=== PATIENT | male | born 1985 | race Caucasian/White ===

== ENCOUNTER 2020-06-24 09:39 | Emergency (ER) | payer OTHER, SELFPAY ==
[2020-06-24 09:55] VITALS: BP 149/91; PULSE 85; RESP 14; TEMP 36.8; O2SAT 100
== END 2020-06-24 10:05 | disposition left against medical advice (07) ==
DX: R10.9 Unspecified abdominal pain (principal)
CPT/HCPCS: 99199

== ENCOUNTER 2023-02-14 15:49 | Emergency (ER) | payer OTHER, SELFPAY ==
[2023-02-14 16:23] VITALS: BP 164/78; PULSE 85; RESP 18; TEMP 36.9; O2SAT 100
--- NOTE | 2023-02-14 16:51 | ED.UPPEXIN ---
HPI - Extremity Injury (Upper) General Chief Complaint: Extremity Injury, Upper Stated Complaint: Right Arm Psin Time Seen by Provider: 02/14/23 16:51 Source: patient and RN notes reviewed Mode of arrival: ambulatory Limitations: dementia History of Present Illness HPI narrative: 37-year-old male with history of diabetes presents with concern for redness, swelling, warmth to the right forearm. He reports several days ago he injected and intravenous drug into that arm. Reports redness started the next day, the redness has been worsening over last 24 hours. He reports warmth, tenderness. He denies fever, aches, chills, sweats, general malaise MD complaint: injury to: right and arm Related Data Home Medications Medication Instructions Recorded Confirmed blood sugar diagnostic (OneTouch 02/14/23 02/14/23 Verio test strips) blood-glucose sensor (Dexcom G6 02/14/23 02/14/23 Sensor device) insulin glargine 100 unit/mL (3 1 unit subcut DIRECTED 02/14/23 02/14/23 mL) subcutaneous pen (Lantus Solostar U-100 Insulin) levothyroxine 112 mcg tablet 112 mcg PO DAILY 02/14/23 02/14/23 Allergies Allergy/AdvReac Type Severity Reaction Status Date / Time No Known Allergies Allergy Verified 02/14/23 16:15 Review of Systems Review of Systems: CONSTITUTIONAL: Denies malaise, chills, sweats, or fever. EYES: Denies redness, or discharge. ENT: Denies rhinorrhea, congestion, swollen lips, swollen tongue CARDIOVASCULAR: Denies chest pain, palpitations, or edema. RESPIRATORY: Denies cough or dyspnea. GASTROINTESTINAL: Denies abdominal pain, nausea, vomiting SKIN: Reports redness, swelling, warmth to the right forearm. Denies purulent drainage, vesicles, bullae, numbness, pain beyond proportion MUSCULOSKELETAL: Denies joint pain or myalgia. NEUROLOGIC: Denies headache. All systems reviewed & are unremarkable except as noted in HPI and below PMFSH Social History Social History Gender identity (if verbalized by the patient): Male Comments At time of signature, agree with nursing past medical, surgical, social and family history. There is no relevant family history pertinent to the presenting complaint Exam Narrative: GENERAL: Well-appearing, well-nourished, and in no acute distress. HEAD: Normocephalic, atraumatic. EYES: PERRLA, conjunctivae clear ENT: Mucous membranes moist. NECK: Supple. No lymphadenopathy CHEST: Clear to auscultation. No respiratory distress. HEART: Regular rate and rhythm. SKIN: Warm, dry. Erythema, induration, tenderness, warmth with sharp margins noted to the right forearm. No vesicles, bullae, necrosis, ecchymosis, crepitus noted. NEURO: Alert and oriented x3. PSYCH: Normal mood and affect Course Course Emergency Course: Patient is aware of diagnosis, understands and agrees to treatment plan. Anticipatory guidance given. Patient agrees to follow-up as directed and is aware of reasons to seek care at the emergency department. Portions of this record may have been created with voice recognition software Level of Care: Express Care Visit Vital Signs Vital signs: Reviewed. MDM - Extremity Injury (Upper) MDM Narrative Medical decision making narrative: Does not appear at this time to be erythema multiforme, bullous, SJS, TEN; no evidence at this time to suggest RMSF, NSTI, endocarditis or Lyme disease; patient looks well, nontoxic and is tolerating oral intake; no neurologic signs or symptoms; no headache, photophobia or neck pain; afebrile. Patient does not have history of of penetrating trauma, laceration, blunt trauma, recent surgery, immunosuppression, malignancy, obesity, alcoholism, corticosteroid use. Discussed the importance of follow-up, patient agrees; question, cellulitis versus necrotizing soft tissue infection versus abscess. Critical Care Time Critical Care Time Critical Care Time: No Discharge Plan Discharge Clinical Impression: Cellulitis Patient Dispo
== END 2023-02-14 17:02 | disposition home or self-care (01) ==
PROVIDERS: Emergency Provider Nurse Practitioner
DX: L03.113 Cellulitis of right upper limb (principal); E11.9 Type 2 diabetes mellitus without complications; E03.9 Hypothyroidism, unspecified; Z79.4 Long term (current) use of insulin
CPT/HCPCS: 99213; G0463

== ENCOUNTER 2023-02-17 19:07 | Emergency (ER) | payer OTHER, SELFPAY ==
[2023-02-17 19:09] VITALS: BP 165/80; PULSE 92; RESP 16; TEMP 36.9; O2SAT 100
--- NOTE | 2023-02-17 21:16 | PC.NURSE ---
No answer for triage
== END 2023-02-17 21:17 | disposition left against medical advice (07) ==
DX: L03.113 Cellulitis of right upper limb (principal)
CPT/HCPCS: 99199

== ENCOUNTER 2023-03-05 14:27 | Emergency (ER) | payer OTHER, SELFPAY ==
[2023-03-05 14:34] VITALS: BP 179/82; PULSE 92; RESP 14; TEMP 37.4; O2SAT 100
--- NOTE | 2023-03-05 14:36 | ED.SKABFB ---
HPI - Skin/Abscess/Foreign Bdy General Chief complaint: Skin/Abscess/Foreign Body Stated complaint: Right Arm Swelling/Skin Problem Time Seen by Provider: 03/05/23 14:41 Source: patient and RN notes reviewed History of Present Illness HPI narrative: Patient is a 37-year-old male who presents to urgent care with complaints of right arm swelling and recurrent cellulitis. Patient initially told the nurse that it started when he shot his arm in a door however patient did admit to IV drug use. Patient states that he came in on the and was given Augmentin. Patient states that the swelling and redness did improve however yesterday he noticed recurrent redness, swelling and pain to the area after doing yd work. Patient states that he has not used since the initial cellulitic reaction. Patient denies any fevers, nausea or vomiting. No other acute complaints. No acute distress noted. Patient aware of the plan of care. Some parts of this dictation were generated by voice recognition software and may contain typographical and/or grammatical inaccuracies. Related Data Home Medications Medication Instructions Recorded Confirmed blood sugar diagnostic (OneTouch 02/14/23 02/14/23 Verio test strips) blood-glucose sensor (Dexcom G6 02/14/23 02/14/23 Sensor device) insulin glargine 100 unit/mL (3 18 unit subcut DIRECTED 02/14/23 03/05/23 mL) subcutaneous pen (Lantus Solostar U-100 Insulin) levothyroxine 112 mcg tablet 112 mcg PO DAILY 02/14/23 03/05/23 Allergies Allergy/AdvReac Type Severity Reaction Status Date / Time No Known Allergies Allergy Verified 03/05/23 14:46 Review of Systems Review of Systems: CONSTITUTIONAL: Denies fever, chills, or sweats. EYES: Denies visual changes, redness, or discharge. ENT: Denies rhinorrhea, congestion, sore throat, or otalgia. CARDIOVASCULAR: Denies chest pain, palpitations, or edema. RESPIRATORY: Denies cough or dyspnea. GASTROINTESTINAL: Denies abdominal pain, nausea, vomiting, or diarrhea. GENITOURINARY: Denies dysuria or hematuria. SKIN: Reports of redness to the right lower arm MUSCULOSKELETAL: Reports of right arm swelling and pain NEUROLOGIC: Denies headache, numbness, or weakness. All other systems reviewed are negative, except as documented in HPI. PMFSH Social History Social History Gender identity (if verbalized by the patient): Male Comments At the time of my signature, I reviewed and agree with the nursing past medical, surgical, social, and family history. There is no relevant family history pertinent to the patient complaint. Exam Narrative: GENERAL: This is a well-nourished, well-developed patient, in no apparent distress. HEAD: normocephalic, atraumatic. EYES: PERRL. Sclera clear/white. Vision is grossly intact. EARS: External ears normal NOSE: External nose normal with no obvious nasal discharge, nares without redness, no rhinorrhea. THROAT: Mucous membranes moist NECK: Neck supple, SKIN: warm, intact with no suspicious lesions or rash, good texture and turgor. NEURO: awake, alert, and oriented to person, place and time. There were no obvious focal neurologic abnormalities. EXTREMITIES: Mild to moderate edema to the right lower arm with 5 x 4 area of erythema to the right lower arm with surrounding tenderness. Positive strong right radial pulse capillary refill less than 2 seconds. Range of motion right upper extremity within normal limits. Course Course Level of Care: Express Care Visit Vital Signs Vital signs: Vital Signs Temperature 99.3 F 03/05/23 14:34 Pulse Rate 92 03/05/23 14:34 Respiratory Rate 14 03/05/23 14:34 Blood Pressure 179/82 H 03/05/23 14:34 Pulse Oximetry 100 03/05/23 14:34 Oxygen Delivery Room Air 03/05/23 14:34 Temperature 99.3 F 03/05/23 14:34 Pulse Rate 92 03/05/23 14:34 Respiratory Rate 14 03/05/23 14:34 Blood Pressure 179/82 H 03/05/23 14:34 Pulse Oximetry 100 0
[2023-03-05 14:46] VITALS: BP 179/82; PULSE 92; RESP 14; TEMP 37.4; O2SAT 100
== END 2023-03-05 14:55 | disposition home or self-care (01) ==
PROVIDERS: Emergency Provider Nurse Practitioner Family; PCP Physician Assistant
DX: L03.113 Cellulitis of right upper limb (principal); J44.9 Chronic obstructive pulmonary disease, unspecified; E11.9 Type 2 diabetes mellitus without complications; E03.9 Hypothyroidism, unspecified
CPT/HCPCS: 99213; G0463

== ENCOUNTER 2023-03-10 17:54 | Emergency (ER) | payer OTHER, SELFPAY ==
[2023-03-10 18:03] VITALS: BP 147/67; PULSE 88; RESP 20; TEMP 37; O2SAT 99
--- NOTE | 2023-03-10 18:04 | ED.WOUNDLAC ---
HPI - Wound/Laceration General Chief Complaint: Wound/Laceration Stated Complaint: Change Packing Time Seen by Provider: 03/10/23 18:45 Source: patient and RN notes reviewed Mode of arrival: ambulatory Limitations: no limitations History of Present Illness HPI narrative: 37-year-old male presents for wound dressing change. Reports he was treated at [facility] for an abscess in his arm, he has been treated here previously for cellulitis in that same area. Reports the abscess was cut open and he needs a dressing change. Reports he received IV antibiotics for 3 days at [facility], he is currently on oral antibiotics, Bactrim and Augmentin, that were prescribed by [facility]. Reports he left [facility] against medical advice. Related Data Home Medications Medication Instructions Recorded Confirmed blood sugar diagnostic (OneTouch 02/14/23 03/10/23 Verio test strips) blood-glucose sensor (Dexcom G6 02/14/23 03/10/23 Sensor device) insulin glargine 100 unit/mL (3 18 unit subcut DIRECTED 02/14/23 03/10/23 mL) subcutaneous pen (Lantus Solostar U-100 Insulin) levothyroxine 112 mcg tablet 112 mcg PO DAILY 02/14/23 03/10/23 amoxicillin 875 mg-potassium 1 tablet PO Q12H 03/10/23 03/10/23 clavulanate 125 mg tablet Allergies Allergy/AdvReac Type Severity Reaction Status Date / Time No Known Allergies Allergy Verified 03/10/23 18:35 Review of Systems Review of Systems: CONSTITUTIONAL: Denies malaise, chills, sweats, or fever. SKIN: Reports wound on his right forearm MUSCULOSKELETAL: Denies muscle skeletal pain NEUROLOGIC: Denies numbness, weakness All systems reviewed & are unremarkable except as noted in HPI and below PMFSH Social History Social History Gender identity (if verbalized by the patient): Male Comments At time of signature, agree with nursing past medical, surgical, social and family history. There is no relevant family history pertinent to the presenting complaint Exam Narrative: GENERAL: Well-appearing, well-nourished, and in no acute distress. HEAD: Normocephalic, atraumatic. EYES: PERRLA, conjunctivae clear, and EOMI. ENT: Mucous membranes moist. NECK: Supple. No lymphadenopathy CHEST: Clear to auscultation. No respiratory distress. HEART: Regular rate and rhythm. SKIN: Warm, dry. Approximately 4 cm surgical wound, not approximated with beefy red tissue bed without any eschar noted to the right forearm. No surrounding erythema, edema, induration noted, no purulent drainage noted. NEURO: Alert and oriented x3. PSYCH: Normal mood and affect Course Course Emergency Course: Wet to dry dressing applied, patient instructed on how to apply wet to dry dressing. Patient instructed to follow-up with [facility] for wound care patient was also given [facility] clinic phone number Patient is aware of diagnosis, understands and agrees to treatment plan. Anticipatory guidance given. Patient agrees to follow-up as directed and is aware of reasons to seek care at the emergency department. Portions of this record may have been created with voice recognition software Level of Care: Express Care Visit Vital Signs Vital signs: Reviewed. MDM - Wound/Laceration MDM Narrative Medical decision making narrative: Exam findings show no acute concerns or changes; patient is non-toxic appearing and is in no distress. Patient is appropriate for outpatient treatment and follow-up. Differential Diagnosis Differential diagnosis: Likely laceration, abrasion and avulsion of skin Critical Care Time Critical Care Time Critical Care Time: No Discharge Plan Discharge Clinical Impression: Dressing change Patient Disposition: Home, Self-Care Condition: Stable Instructions: General Patient Instructions Additional Instructions: Apply wet to dry dressing as directed every 12 hours. Please follow-up with your primary care provider or wound care for further evaluation of your wound. Any taking
== END 2023-03-10 19:00 | disposition home or self-care (01) ==
PROVIDERS: Emergency Provider Nurse Practitioner; PCP Physician Assistant
DX: Z48.01 Encounter for change or removal of surgical wound dressing (principal); J44.9 Chronic obstructive pulmonary disease, unspecified; E11.9 Type 2 diabetes mellitus without complications; E03.9 Hypothyroidism, unspecified
CPT/HCPCS: 99212; G0463

== ENCOUNTER 2024-06-20 16:14 | Emergency (ER) | payer OTHER, SELFPAY ==
[2024-06-20 16:18] VITALS: BP 111/80; PULSE 98; RESP 20; TEMP 37.7; O2SAT 100
--- NOTE | 2024-06-20 16:31 | ED.SKABFB ---
HPI - Skin/Abscess/Foreign Bdy General Chief complaint: Skin/Abscess/Foreign Body Stated complaint: bites on right arm History of Present Illness HPI narrative: Patient presents with insect bites to both arms. Related Data Home Medications Medication Instructions Recorded Confirmed blood sugar diagnostic (OneTouch 02/14/23 06/20/24 Verio test strips) blood-glucose sensor (Dexcom G6 02/14/23 06/20/24 Sensor device) insulin glargine 100 unit/mL (3 18 unit subcut DIRECTED 02/14/23 06/20/24 mL) subcutaneous pen (Lantus Solostar U-100 Insulin) famotidine 20 mg tablet 20 mg PO DAILY 06/20/24 06/20/24 hydroxyzine HCl 25 mg tablet 25 mg PO Q6H PRN Itching 06/20/24 06/20/24 insulin lispro 100 unit/mL 8 sliding scale dose subcut TID 06/20/24 06/20/24 subcutaneous pen (Humalog KwikPen (U-100) Insulin) levothyroxine 125 mcg tablet 125 mcg PO DAILY 06/20/24 06/20/24 losartan 25 mg tablet 25 mg PO DAILY 06/20/24 06/20/24 Allergies Allergy/AdvReac Type Severity Reaction Status Date / Time No Known Allergies Allergy Verified 06/20/24 16:32 Review of Systems Review of Systems: CONSTITUTIONAL: DENIES FEVER, CHILLS, OR SWEATS. EYES: DENIES VISUAL CHANGES, REDNESS, OR DISCHARGE. ENT: DENIES RHINORRHEA, CONGESTION, SORE THROAT, OR OTALGIA. CARDIOVASCULAR: DENIES CHEST PAIN, PALPITATIONS, OR EDEMA. RESPIRATORY: DENIES COUGH OR DYSPNEA. GASTROINTESTINAL: DENIES ABDOMINAL PAIN, NAUSEA, VOMITING, OR DIARRHEA. GENITOURINARY: DENIES DYSURIA OR HEMATURIA. SKIN: DENIES RASH OR ITCHING. MUSCULOSKELETAL: DENIES BACK PAIN, JOINT PAIN, OR MYALGIA. NEUROLOGIC: DENIES HEADACHE, NUMBNESS, OR WEAKNESS. PSYCHIATRIC: DENIES ANXIETY OR DEPRESSION. PMFSH Social History Social History Gender identity (if verbalized by the patient): Male Exam Narrative: GENERAL: WELL-APPEARING, WELL-NOURISHED, AND IN NO ACUTE DISTRESS. HEAD: NORMOCEPHALIC, ATRAUMATIC. EYES: PERRLA AND EOMI. ENT: NARES CLEAR, NO RHINORRHEA OR EPISTAXIS. MUCOUS MEMBRANES MOIST. NECK: SUPPLE. CHEST: CLEAR TO AUSCULTATION. NO RESPIRATORY DISTRESS. HEART: REGULAR RATE AND RHYTHM. NO MURMUR HEARD. NORMAL PERIPHERAL PULSES. ABDOMEN: SOFT, NONTENDER, NONDISTENDED, NORMAL ACTIVE BOWEL SOUNDS. EXTREMITIES: NORMAL RANGE OF MOTION. NO EDEMA. SKIN: WARM, DRY, NO RASH. MULTIPLE INSECT BITES TO BOTH ARMS AND LEGS NEURO: NO FOCAL DEFICITS. ALERT AND ORIENTED X3. ALMA COMA SCALE EYE OPENING: SPONTANEOUS 4 ALMA COMA SCALE MOTOR: OBEYS COMMANDS 6 ALMA COMA SCALE VERBAL: ORIENTED 5 ALMA COMA SCALE TOTAL 15 Course Course Level of Care: Express Care Visit Discharge Plan Discharge Clinical Impression: Insect bites Patient Disposition: Home, Self-Care Condition: Stable Instructions: Antibiotic Form, Insect Bite or Sting (ED) Additional Instructions: Apply ointment as prescribed Follow-up with primary care provider in 3-4 days for re-evaluation If any new or worsening symptoms please go to ER immediately further evaluation treatment Prescriptions: New triamcinolone acetonide 0.1 % cream 1 applic TOPICAL BID 5 Days Qty: 28.4 0RF No Action insulin lispro [Humalog KwikPen Insulin] 100 unit/mL insulin pen 8 sliding scale dose SUBCUT TID levothyroxine 125 mcg tablet 125 mcg PO DAILY hydroxyzine HCl 25 mg tablet 25 mg PO Q6H PRN (Reason: Itching) famotidine 20 mg tablet 20 mg PO DAILY losartan 25 mg tablet 25 mg PO DAILY (DME) OneTouch Verio test strips Strip MISCELLANEOUS insulin glargine [Lantus Solostar U-100 Insulin] 100 unit/mL (3 mL) insulin pen 18 unit SUBCUT DIRECTED (DME) Dexcom G6 Sensor Device MISCELLANEOUS Follow-up/Referrals: PHYSICIAN NOT ON STAFF,NONSTAFF [Primary Care Provider] -
== END 2024-06-20 16:38 | disposition home or self-care (01) ==
PROVIDERS: Emergency Provider Nurse Practitioner Family
DX: S40.862A Insect bite (nonvenomous) of left upper arm, initial encounter (principal); S40.861A Insect bite (nonvenomous) of right upper arm, initial encounter; S80.862A Insect bite (nonvenomous), left lower leg, initial encounter; S80.861A Insect bite (nonvenomous), right lower leg, initial encounter; W57.XXXA Bitten or stung by nonvenomous insect and other nonvenomous arthropods, initial encounter
CPT/HCPCS: 99213; G0463